=== PATIENT | female | born 1980 | race Caucasian/White ===

== ENCOUNTER 2016-10-14 02:19 | Emergency (ER) | payer MEDICAID ==
[~2016-10-14] VITALS: Ht 170.2 cm; Wt 60.0 kg
[~2016-10-14 02:19] MED LIST: CIPR500T87 PO; CITA20TA9 PO; HYDR-3138 PO; OXYC-302 PO; PREN1TAB60 PO; RISP2TAB35 PO; TAMS-11 PO
[2016-10-14 03:40] VITALS: BP 117/77
[2016-10-14] MEDS ORDERED: ACETAMINOPHEN 325 MG TABLET PO ONE (04:00)
[2016-10-14 04:22] LABS: BLOOD UREA NITROGEN 15 mg/dL (7-18)
[2016-10-14] MEDS ORDERED: ACETAMINOPHEN 500 MG TABLET ONE (04:31)
[2016-10-14 04:59] LABS: PATH.CAST-FLAG NOT PRESENT; SPERM-FLAG NOT PRESENT; SRC-FLAG NOT PRESENT; XTAL-FLAG NOT PRESENT; YLC-FLAG NOT PRESENT
[2016-10-14 05:11] LABS: HCG UR OBC PASS
== END 2016-10-14 05:41 | disposition home or self-care (01) ==
LOC: ED 04:00
DX: G89.29 Other chronic pain (principal); R10.84 Generalized abdominal pain; F15.10 Other stimulant abuse, uncomplicated; F25.9 Schizoaffective disorder, unspecified; F31.9 Bipolar disorder, unspecified
CPT/HCPCS: 36415; 80048; 81001; 81025; 82040; 83690; 85025; 87086

== ENCOUNTER 2017-09-20 08:41 | Emergency (ER) | payer MEDICAID ==
[~2017-09-20] VITALS: Ht 167.6 cm; Wt 64.0 kg
[~2017-09-20 08:41] MED LIST changes: -HYDR-3138 PO; +HYDR-3237 PO
[2017-09-20 09:59] LABS: CULTURE INDICATED? YES; MICROSCOPIC INDICATED
[2017-09-20] MEDS ORDERED: OMEP-110 PO (10:10)
[2017-09-20] MEDS ORDERED: MORPHINE SULFATE 4 MG/ML, 1ML IVPush PRN (11:00)
[2017-09-20] MEDS ORDERED: FAMOTIDINE 20 MG/2 ML IVP ONE (11:00)
[2017-09-20] MEDS ORDERED: KETOROLAC 60 MG/2 ML IVPush ONE (11:00)
[2017-09-20] MEDS ORDERED: ONDANSETRON ODT 4 MG PO ONE (11:00)
[2017-09-20] MEDS ORDERED: KETOROLAC 30 MG/1 ML ONE (11:01)
[2017-09-20] MEDS ORDERED: ONDANSETRON ODT 4 MG ONE (11:01)
[2017-09-20] MEDS ORDERED: MORPHINE SULFATE 4 MG/ML, 1ML ONE (11:01)
[2017-09-20 11:06] LABS: BASOPHILS # (AUTO) 0.01 x10^3/uL (0-0.1); BASOPHILS % (AUTO) 0 % (0-1); EOSINOPHILS # (AUTO) 0.02 x10^3/uL (0-0.4); EOSINOPHILS % (AUTO) 0 % (1-7); LYMPHOCYTES # (AUTO) 1.43 x10^3/uL (1-3.4); LYMPHOCYTES % (AUTO) 27 % (22-44); MD NO; MEAN CORPUSCULAR HEMOGLOBIN 33.2 pg (27.0-34.8); MEAN CORPUSCULAR HGB CONC 34.3 g/dL (32.4-35.8); MEAN PLATELET VOLUME 8.6 fL (7.4-10.4); MONOCYTES # (AUTO) 0.16 x10^3/uL (0.2-0.8); MONOCYTES % (AUTO) 3 % (2-9); NEUTROPHILS # (AUTO) 3.77 x10^3/uL (1.8-6.8); NEUTROPHILS % (AUTO) 70 % (42-75); PLATELET COUNT 274 x10^3/uL (130-400); RED BLOOD COUNT 4.35 x10^6/uL (3.82-5.3); RED CELL DISTRIBUTION WIDTH 12.6 % (9.6-15.2)
[2017-09-20 11:17] LABS: ALANINE AMINOTRANSFERASE 25 U/L (12-78); ALBUMIN 3.6 g/dL (3.4-5.0); ANION GAP 6 mmol/L (5-15); CALCIUM 8.4 mg/dL (8.5-10.1); CHLORIDE 111 mmol/L (98-107); CREATININE 0.81 mg/dL (0.55-1.02)
[2017-09-20 11:21] LABS: ALKALINE PHOSPHATASE 79 U/L (45-117); BILIRUBIN,TOTAL 0.6 mg/dL (0.2-1.0); TOTAL PROTEIN 7.2 g/dL (6.4-8.2)
[2017-09-20] MEDS ORDERED: FAMOTIDINE 20 MG TABLET PO ONE (11:30)
[2017-09-20] MEDS ORDERED: FAMOTIDINE 20 MG TABLET ONE (11:42)
[2017-09-20 11:51] LABS: MICROSCOPIC NOT IND
[2017-09-20 12:05] LABS: CULTURE INDICATED? NO
[2017-09-20 13:59] VITALS: BP 128/81
== END 2017-09-20 14:02 | disposition home or self-care (01) ==
LOC: ED 12:16
DX: N30.01 Acute cystitis with hematuria (principal); Z87.442 Personal history of urinary calculi
CPT/HCPCS: 36415; 74176; 80053; 81001; 81003; 83690; 84702; 85025; 87086; 87147; 96374; 96375; 99285; J1885; Q0162

== ENCOUNTER 2020-04-12 01:19 | Emergency (ER) | payer MEDICAID ==
[~2020-04-12] VITALS: Ht 167.6 cm; Wt 65.0 kg
[~2020-04-12 01:19] MED LIST changes: +OMEP-110 PO
[2020-04-12] MEDS ORDERED: KETOROLAC 30 MG/1 ML IM ONE (02:00)
[2020-04-12] MEDS ORDERED: KETOROLAC 30 MG/1 ML ONE (02:08)
--- NOTE | 2020-04-12 02:27 | NUR ---
ISIDRO EDWARDS IN FOR PELVIC EXAM. PT. MEDICATED PER MAR. PT. AWARE OF NEED FOR UA.
[2020-04-12 02:34] LABS: CLUE CELLS NONE SEEN (NONE SEEN)
[2020-04-12 02:35] LABS: WET PREP WBCS FEW (FEW)
--- NOTE | 2020-04-12 02:46 | NUR ---
URINE SAMPLE SENT TO LAB. PT. SITTING ON GURNEY LAUGHING WITH FRIEND AT BS. PT. REPORTS PAIN IS GONE AFTER MEDS.
[2020-04-12] MEDS ORDERED: CEFTRIAXONE 250 MG ONE (02:48)
[2020-04-12] MEDS ORDERED: AZITHROMYCIN 250 MG TABLET ONE (02:48)
[2020-04-12 02:52] LABS: HCG UR SG 1.037 (1.003-1.030); MICROSCOPIC NOT IND
[2020-04-12] MEDS ORDERED: CEFTRIAXONE 250 MG IM ONE (03:00)
[2020-04-12] MEDS ORDERED: AZITHROMYCIN 500 MG TABLET PO ONE (03:00)
[2020-04-12 03:36] VITALS: BP 148/87
== END 2020-04-12 03:37 | disposition home or self-care (01) ==
LOC: ED 02:55
DX: N89.8 Other specified noninflammatory disorders of vagina (principal); G89.11 Acute pain due to trauma; R10.2 Pelvic and perineal pain; F17.210 Nicotine dependence, cigarettes, uncomplicated
CPT/HCPCS: 81003; 81025; 87210; 87491; 87591; 87808; 96372; 99284; 99406; J0696; J1885

== ENCOUNTER 2020-07-14 16:44 | Emergency (ER) | payer MEDICAID ==
[~2020-07-14] VITALS: Ht 167.6 cm; Wt 69.1 kg
[~2020-07-14 16:44] MED LIST changes: -OXYC-302 PO; +OXYC1TAB14 PO
--- NOTE | 2020-07-14 16:59 | NUR ---
TASK RN: PT BIB FRIEND VIA POV FOR VAGINAL PAIN. PER PT SHE HAD VAGINAL TRAUMA APPROX 6 WEEKS AGO AND HAD INTERCOURSE LAST NIGHT. PT REPORTS NO DYSURIA OR FLANK PAIN. PT STATES "I AM FREAKING OUT BECAUSE I ALSO BLEED A LOT WHEN I PEE. IT ALSO FEELS LIKE A LUCIANA HORSE INSIDE MY VAGINA". [facility].
--- NOTE | 2020-07-14 17:20 | NUR ---
pt in bed. no distress
[2020-07-14 17:38] VITALS: BP 128/77
--- NOTE | 2020-07-14 18:14 | NUR ---
PT WALKED OUT SELF WITH STEADY GAIT. IF S&S WORSEN RETURN TO ER
== END 2020-07-14 18:19 | disposition home or self-care (01) ==
LOC: ED 17:50
DX: G89.29 Other chronic pain (principal); R10.2 Pelvic and perineal pain
CPT/HCPCS: 99281

== ENCOUNTER 2020-10-07 01:03 | Emergency (ER) | payer MEDICAID ==
[~2020-10-07] VITALS: Ht 165.1 cm; Wt 67.9 kg
--- NOTE | 2020-10-07 01:19 | NUR ---
CC OF "SUJATHA BEEN CONSTIPATED FOR A WEEK", STATES SHE TRIED AN ENEMA 2 DAYS AGO WITH NO LUCK. C/O OF ABD PAIN "THAT GOES TO MY CHEST AND IT HURTS TO BREATHE". DENIES TAKING PAIN MED REGULARY.
[2020-10-07] MEDS ORDERED: SODIUM CHLORIDE 0.9% 1,000ML IVBOLUS ONE (01:30)
[2020-10-07] MEDS ORDERED: MAGNESIUM HYDROXIDE 8%, 30ML UDC PO ONE (01:30)
[2020-10-07] MEDS ORDERED: METHYLNALTREXONE 12 MG/0.6 ML SYR SQ ONE ×2 (01:30→01:40)
[2020-10-07] MEDS ORDERED: SODIUM CHLORIDE FLUSH 10ML SYR IVF ONE (01:30)
--- NOTE | 2020-10-07 01:45 | NUR ---
PT TO IMAGING
[2020-10-07 01:47] LABS: BASOPHILS % (AUTO) 0 % (0-1); EOSINOPHILS % (AUTO) 0 % (1-7); LYMPHOCYTES % (AUTO) 12 % (22-44); MEAN CORPUSCULAR HEMOGLOBIN 29.9 pg (27.0-34.8); MEAN CORPUSCULAR HGB CONC 33.3 g/dL (32.4-35.8); MEAN PLATELET VOLUME 8.3 fL (7.4-10.4); MONOCYTES % (AUTO) 6 % (2-9); NEUTROPHILS % (AUTO) 82 % (42-75); PLATELET COUNT 296 x10^3/uL (130-400); RED BLOOD COUNT 4.02 x10^6/uL (3.82-5.3); RED CELL DISTRIBUTION WIDTH 14.6 % (9.6-15.2)
[2020-10-07 01:57] LABS: MD NO
[2020-10-07 01:59] LABS: ALANINE AMINOTRANSFERASE 21 U/L (12-78); ALBUMIN 3.5 g/dL (3.4-5.0); ANION GAP 5 mmol/L (5-15); CALCIUM 8.6 mg/dL (8.5-10.1); CHLORIDE 110 mmol/L (98-107); CREATININE 0.89 mg/dL (0.55-1.02)
[2020-10-07 02:03] LABS: ALKALINE PHOSPHATASE 105 U/L (45-117); BILIRUBIN,TOTAL 0.7 mg/dL (0.2-1.0); TOTAL PROTEIN 7.1 g/dL (6.4-8.2)
[2020-10-07 02:42] VITALS: BP 145/87
== END 2020-10-07 02:44 | disposition home or self-care (01) ==
LOC: ED 02:03
DX: K59.00 Constipation, unspecified (principal); R10.84 Generalized abdominal pain
CPT/HCPCS: 36415; 74021; 80053; 83690; 84703; 85025; 96360; 96372; 99284; J7030